=== PATIENT | female | born 1995 | race Caucasian/White ===

== ENCOUNTER 2017-01-08 18:11 | Inpatient (IN) | payer BC ==
[~2017-01-08 18:11] MED LIST: Ampicillin 1 GM in Sodium Chloride 0.9% 50 ML IV SCH
[2017-01-08] MEDS ORDERED: Misoprostol 200 MCG Tab PO PRN (18:30)
[2017-01-08] MEDS ORDERED: Sodium Chloride 0.9% 2.5 ML Syringe FLUSH PRN (18:30)
[2017-01-08] MEDS ORDERED: Sodium Chloride 0.9% 10 ML Syringe FLUSH PRN (18:30)
[2017-01-08] MEDS ORDERED: Lidocaine 1% 50 ML MDV INJECT PRN (18:30)
[2017-01-08] MEDS ORDERED: Oxytocin/0.9 % Sodium Chloride 30 UNIT/500 ML BAG IV SCH (18:30)
[2017-01-08] MEDS ORDERED: Methylergonovine 0.2 MG/1 ML Amp IM PRN (18:30)
[2017-01-08] MEDS ORDERED: Carboprost Tromethamine 250 MCG/1 ML Amp IM PRN (18:30)
[2017-01-08] MEDS ORDERED: Water For Irrigation,Sterile 1,000 ML Container IRR PRN (18:30)
[2017-01-08] MEDS ORDERED: Nalbuphine 10 MG/1 ML Vial IVPUSH PRN (18:30)
[2017-01-08] MEDS ORDERED: Ampicillin 2 GM in Sodium Chloride 0.9% 100 ML IV ONE (18:30)
[2017-01-08] MEDS ORDERED: Butorphanol 1 MG/ML SDV IVPUSH PRN (18:30)
--- NOTE | 2017-01-08 19:02 | PCM.LDHP ---
L&D History of Present Illness - General Date of Service: 01/08/17 Admit Problem/Dx: Patient Status Order with Admit Dx/Problem 01/08/17 18:30 Patient Status [ADT] Routine Admission Diagnosis/Problem Admission Diagnosis/Problem 01/08/17 18:57 21 yo unsure of EDC very late care. Per u/s 39weeks. A neg, RI, GBS unkwn, Chlamydia positive. SROM mec stained fluid active labor Source of Information: Patient History Limitations: Reports: No Limitations - History of Present Illness Improves with: Reports: None Worsens with: Reports: None Associated Symptoms: Reports: N - Related Data Allergies/Adverse Reactions: Allergies Allergy/AdvReac Type Severity Reaction Status Date / Time No Known Allergies Allergy Verified 01/08/17 18:29 H&P Review of Systems - Review of Systems: Review Of Systems: See Below General: Reports: No Symptoms HEENT: Reports: No Symptoms Pulmonary: Reports: No Symptoms Cardiovascular: Reports: No Symptoms Gastrointestinal: Reports: No Symptoms Genitourinary: Reports: No Symptoms Musculoskeletal: Reports: No Symptoms Skin: Reports: No Symptoms Psychiatric: Reports: No Symptoms Neurological: Reports: No Symptoms Hematologic/Lymphatic: Reports: No Symptoms Immunologic: Reports: No Symptoms L&D Exam - Exam Exam: See Below - Vital Signs Weight: 97.069 kg - OB Specific Contraction Intensity: Moderate to Strong Movement: Active Heart Tones: Present Heart Tones per Min: 130 Heart Rate (FHR) Variability: Moderate (6-25 bmp) Presentation: Vertex - Rosas Score Rosas Score Cervix Position: Midposition Rosas Score Consistency: Soft Rosas Score Effacement: >80% Rosas Score Dilation: > 5 cm Rosas Score 's Station: -1 ,0 Rosas Score Total: 11 - Exam General: Alert, Cooperative HEENT: Hearing Intact Lungs: Clear to Auscultation, Normal Respiratory Effort Cardiovascular: Regular Rate, Regular Rhythm, Normal S1, Normal S2 GI/Abdominal Exam: Soft, Non-Tender, No Organomegaly (gravid) Rectal Exam: Deferred Genitourinary: Cervical dilitation, Cervical fluid (mec stained fluid) Back Exam: Full Range of Motion Extremities: Normal Range of Motion, Non-Tender, No Pedal Edema, Normal Capillary Refill Skin: Warm, Dry, Intact Neurological: Reflexes Equal Bilateral Psychiatric: Alert, Normal Affect, Normal Mood - Patient Data Lab Results Last 24 hrs: Laboratory Results - last 24 hr 01/08/17 Range/Units 18:40 WBC 15.44 H (4.0-11.0) K/uL RBC 4.41 (4.30-5.90) M/uL Hgb 11.0 L (12.0-16.0) g/dL Hct 33.9 L (36.0-46.0) % MCV 76.9 L (80.0-98.0) fL MCH 24.9 L (27.0-32.0) pg MCHC 32.4 (31.0-37.0) g/dL RDW Std Deviation 42.6 (28.0-62.0) fl RDW Coeff of Rosie 16 H (11.0-15.0) % Plt Count 207 (150-400) K/uL MPV 10.40 (7.40-12.00) fL Nucleated RBC % 0.0 /100WBC Nucleated RBCs # 0 K/uL Result Diagrams: 01/08/17 18:40 - Problem List (1) Supervision of normal IUP (intrauterine ) in primigravida SNOMED Code(s): 73002442, 362979995, 643795128 ICD Code: Z34.00 - ENCNTR FOR SUPRVSN OF NORMAL FIRST , UNSP TRIMESTER Status: Acute Priority: High Current Visit: Yes Qualifiers: Trimester: third trimester Qualified Code(s): Z34.03 - Encounter for supervision of normal first , third trimester (2) Poor patient attendance of care SNOMED Code(s): 013790042 ICD Code: O09.30 - SUPRVSN OF PREG W INSUFFICIENT ANTENAT CARE, UNSP TRIMESTER Status: Acute Priority: High Current Visit: Yes (3) Chlamydia infection affecting in third trimester SNOMED Code(s): 3387360430933 ICD Code: O98.313 - OTH INFECT W SEXL MODE OF TRANSMISS COMP PREG, THIRD TRI ; A74.9 - CHLAMYDIAL INFECTION, UNSPECIFIED Status: Acute Priority: High Current Visit: Yes (4) Meconium in amniotic fluid affecting management of mother in third trimester SNOMED Code(s): 89960265 ICD Code: O36.8930 - MATERNAL CARE FOR OTH PROBLEMS, THIRD TRIMESTER, UNSP Status: Acute Priority: High Current Visit: Yes Qualifiers: Fetus number: single or unspecified fetus Qualified Code(s): O36.8930 - Maternal care for other specified problems, third trimester, not applicable or unspecified Problem List Initiated/Reviewed/Updated: Yes Orders Last 24hrs: Active Orders 24 hr Category Date Time Status Patient Status [ADT] Routine ADT 01/08/17 18:30 Active Heart Tones [RC] CONTINUOUS Care 01/08/17 18:30 Active Non Stress Test [RC] PER UNIT ROUTINE Care 01/08/17 18:30 Active May Shower [RC] ASDIRECTED Care 01/08/17 18:30 Active Notify Provider [RC] PRN Care 01/08/17 18:30 Active Up ad Melany [RC] ASDIRECTED Care 01/08/17 18:30 Active Vaginal Exam [RC] PRN Care 01/08/17 18:30 Active Vital Signs [RC] PER UNIT ROUTINE Care 01/08/17 18:30 Active TYPE AND SCREEN [BBK] Routine Lab 01/08/17 18:40 Received Ampicillin 1 gm Med 01/08/17 22:30 Pending Sodium Chloride 0.9% [Normal Saline] 50 ml IV Q4H Ampicillin 2 gm Med 01/08/17 18:30 Active Sodium Chloride 0.9% [Normal Saline] 100 ml IV ONETIME Butorphanol [Stadol] Med 01/08/17 18:30 Active 1 mg IVPUSH Q1H PRN Carboprost Tromethamine [Hemabate DS] Med 01/08/17 18:30 Active 250 mcg IM ASDIRECTED PRN Lactated Ringers [Ringers, Lactated] 1,000 ml Med 01/08/17 18:30 Active IV ASDIRECTED Lidocaine 1% [Xylocaine 1%] Med 01/08/17 18:30 Active 50 ml INJECT .ONCE PRN Methylergonovine [Methergine] Med 01/08/17 18:30 Active 0.2 mg IM ASDIRECTED PRN Misoprostol [Cytotec] Med 01/08/17 18:30 Active 200 mcg PO .ONCE PRN Nalbuphine [Nubain] Med 01/08/17 18:30 Active 10 mg IVPUSH Q1H PRN Oxytocin/0.9 % Sodium Chloride [Oxytocin 30 Unit/500 ML Med 01/08/17 18:30 Active -NS] 30 unit in 500 ml IV TITRATE Sodium Chloride 0.9% [Saline Flush] Med 01/08/17 18:30 Active 10 ml FLUSH ASDIRECTED PRN Sodium Chloride 0.9% [Saline Flush] Med 01/08/17 18:30 Active 2.5 ml FLUSH ASDIRECTED PRN Water For Irrigation,Sterile [Sterile Water for Med 01/08/17 18:30 Active Irrigation] 1,000 ml IRR ASDIRECTED PRN Scalp Electrode [WOMSER] Per Unit Routine Oth 01/08/17 18:30 Ordered Peripheral IV Insertion Adult [OM.PC] Routine Oth 01/08/17 18:30 Ordered Resuscitation Status Routine Resus Stat 01/08/17 18:30 Ordered Medication Orders Butorphanol Tartrate (Stadol) 1 mg IVPUSH Q1H PRN PRN Reason: Pain Carboprost Tromethamine (Hemabate Ds) 250 mcg IM ASDIRECTED PRN PRN Reason: Post Hemorrhage Ampicillin Sodium 2 gm/ Sodium (Chloride) 100 mls @ 200 mls/hr IV ONETIME ONE Stop: 01/08/17 18:59 Ampicillin Sodium 1 gm/ Sodium (Chloride) 50 mls @ 100 mls/hr IV Q4H [facility] Lactated Ringer's (Ringers, Lactated) 1,000 mls @ 150 mls/hr IV ASDIRECTED [facility] Oxytocin/Sodium Chloride (Oxytocin 30 Unit/500 Ml-Ns) 30 unit in 500 mls @ 999 mls/hr IV TITRATE [facility] Lidocaine HCl (Xylocaine 1%) 50 ml INJECT .ONCE PRN PRN Reason: Laceration repair Methylergonovine Maleate (Methergine) 0.2 mg IM ASDIRECTED PRN PRN Reason: Post Hemorrhage Misoprostol (Cytotec) 200 mcg PO .ONCE PRN PRN Reason: Post Hemorrhage Nalbuphine HCl (Nubain) 10 mg IVPUSH Q1H PRN PRN Reason: Pain (severe 7-10) Sodium Chloride (Saline Flush) 10 ml FLUSH ASDIRECTED PRN PRN Reason: Keep Vein Open Sodium Chloride (Saline Flush) 2.5 ml FLUSH ASDIRECTED PRN PRN Reason: Keep Vein Open Sterile Water (Sterile Water For Irrigation) 1,000 ml IRR ASDIRECTED PRN PRN Reason: delivery Assessment/Plan Comment:: Labor A: 21 yo unsure of EDC very late care. Per u/s 39weeks. A neg, RI , GBS unkwn, Chlamydia positive. SROM mec stained fluid active labor P: Admit to L&D, epidural prn, anticipate , Dr Nick updated on pt status
[2017-01-08] MEDS: Lactated Ringers 1,000 ML IV SCH ×2 (19:10→20:09)
[2017-01-08] MEDS ORDERED: fentaNYL 100 MCG/2 ML SDV ONE (19:14)
[2017-01-08] MEDS ORDERED: Ropivacaine HCl/PF 100 ML ONE (19:15)
--- NOTE | 2017-01-08 20:07 | PCM.PREANE ---
Preanesthetic Assessment - Anesthesia/Transfusion/Family Hx Anesthesia History: No Prior Anesthesia Family History of Anesthesia Reaction: No Transfusion History: No Prior Transfusion(s) - Review of Systems General: No Symptoms Pulmonary: No Symptoms Cardiovascular: No Symptoms Gastrointestinal: No Symptoms Neurological: No Symptoms Other: Reports: None - Physical Assessment NPO Status Date: 01/08/17 NPO Status Time: 20:05 Height: 5 ft 5 in Weight: 214 lb ASA Class: 2 Mental Status: Alert & Oriented x3 Airway Class: Mallampati = 2 Dentition: Reports: Normal Dentition ROM/Head Extension: Full Lungs: Clear to Auscultation, Normal Respiratory Effort Cardiovascular: Regular Rate, Regular Rhythm - Lab Values: Laboratory Last Values WBC 15.44 K/uL (4.0-11.0) H 01/08/17 18:40 RBC 4.41 M/uL (4.30-5.90) 01/08/17 18:40 Hgb 11.0 g/dL (12.0-16.0) L 01/08/17 18:40 Hct 33.9 % (36.0-46.0) L 01/08/17 18:40 MCV 76.9 fL (80.0-98.0) L 01/08/17 18:40 MCH 24.9 pg (27.0-32.0) L 01/08/17 18:40 MCHC 32.4 g/dL (31.0-37.0) 01/08/17 18:40 RDW Std Deviation 42.6 fl (28.0-62.0) 01/08/17 18:40 RDW Coeff of Rosie 16 % (11.0-15.0) H 01/08/17 18:40 Plt Count 207 K/uL (150-400) 01/08/17 18:40 MPV 10.40 fL (7.40-12.00) 01/08/17 18:40 Nucleated RBC % 0.0 /100WBC 01/08/17 18:40 Nucleated RBCs # 0 K/uL 01/08/17 18:40 Blood Type A NEGATIVE 01/08/17 18:40 Antibody Screen NEGATIVE 01/08/17 18:40 - Allergies Allergies/Adverse Reactions: Allergies Allergy/AdvReac Type Severity Reaction Status Date / Time No Known Allergies Allergy Verified 01/08/17 18:29 - Blood Blood Available: No Product(s) Available: None - Anesthesia Plan Free Text/Narrative:: Labor Epidural Pre-Op Medication Ordered: None - Acknowledgements Anesthesia Type Planned: Epidural Pt an Appropriate Candidate for the Planned Anesthesia: Yes Alternatives and Risks of Anesthesia Discussed w Pt/Guardian: Yes Pt/Guardian Understands and Agrees with Anesthesia Plan: Yes PreAnesthesia Questionnaire Genitourinary History: Reports: STD (untreated chlamydia) - CURRENT (IN HOUSE) MEDS Current Meds: Current Medications Butorphanol Tartrate (Stadol) 1 mg IVPUSH Q1H PRN PRN Reason: Pain Carboprost Tromethamine (Hemabate Ds) 250 mcg IM ASDIRECTED PRN PRN Reason: Post Hemorrhage Ampicillin Sodium 1 gm/ Sodium (Chloride) 50 mls @ 100 mls/hr IV Q4H [facility] Lactated Ringer's (Ringers, Lactated) 1,000 mls @ 150 mls/hr IV ASDIRECTED [facility] Last Admin: 01/08/17 19:10 Dose: 150 mls/hr Oxytocin/Sodium Chloride (Oxytocin 30 Unit/500 Ml-Ns) 30 unit in 500 mls @ 999 mls/hr IV TITRATE [facility] Lidocaine HCl (Xylocaine 1%) 50 ml INJECT .ONCE PRN PRN Reason: Laceration repair Methylergonovine Maleate (Methergine) 0.2 mg IM ASDIRECTED PRN PRN Reason: Post Hemorrhage Misoprostol (Cytotec) 200 mcg PO .ONCE PRN PRN Reason: Post Hemorrhage Nalbuphine HCl (Nubain) 10 mg IVPUSH Q1H PRN PRN Reason: Pain (severe 7-10) Sodium Chloride (Saline Flush) 10 ml FLUSH ASDIRECTED PRN PRN Reason: Keep Vein Open Sodium Chloride (Saline Flush) 2.5 ml FLUSH ASDIRECTED PRN PRN Reason: Keep Vein Open Sterile Water (Sterile Water For Irrigation) 1,000 ml IRR ASDIRECTED PRN PRN Reason: delivery Discontinued Medications Fentanyl (Sublimaze) Confirm Administered Dose 100 mcg .ROUTE .STK-MED ONE Stop: 01/08/17 19:15 Ampicillin Sodium 2 gm/ Sodium (Chloride) 100 mls @ 200 mls/hr IV ONETIME ONE Stop: 01/08/17 18:59 Ropivacaine (Naropin 0.2%) Confirm Administered Dose 100 mls @ as directed .ROUTE .[facility] ONE Stop: 01/08/17 19:16
[2017-01-09] MEDS ORDERED: Ampicillin 1 GM in Sodium Chloride 0.9% 50 ML IV SCH (00:30)
--- NOTE | 2017-01-09 01:11 | PCM.DEL ---
L & D Note - General Info Date of Service: 01/09/17 Mother's Due Date: 01/09/17 - Delivery Note Labor: Spontaneous Delivery Outcome: Livebirth Infant Delivery Method: Spontaneous Vaginal Delivery-Single Delivery Mode: Spontaneous Presentation: Vertex Nuchal Cord: None Anesthesia Type: Epidural Amniotic Fluid Description: Meconium Stained Episiotomy Type: None Laceration: Labial, Sulcus Suture type: Chromic Suture size: 3-0 Placenta: Intact, Spontaneous Estimated Blood Loss: 200 Resuscitation Needed: No Score 1 min: 9 Score 5 min: 9 Second Stage Interventions: Reports: Pushing Effectively, Pushing, Pulls Own Legs Back Delivery Comments (Free Text/Narrative):: of viable male over intact perineum, head delivered then shoulders and body followed easily. Infant to mothers abdomen with RN at for evaluation. Delayed cord clamping. Pitocin to IFV. Cord clamped x2 and cut by Grandmother. Cord blood collected. Placenta delivered grossly intact. Inspection noted 2nd degree sulcus tear and right labial both repaired in usual manor with 3-0 bessie. EBL 200cc, APGARS 9/9, Wt: 8lb 6oz. Mother and baby left in stable condition for recovery bonding well. - General Info Date of Service: 01/09/17 Admission Dx/Problem (Free Text): Patient Status Order with Admit Dx/Problem 01/08/17 18:30 Patient Status [ADT] Routine Admission Diagnosis/Problem Admission Diagnosis/Problem 01/08/17 18:57 21 yo unsure of EDC very late care. Per u/s 39weeks. A neg, RI, GBS unkwn, Chlamydia positive. SROM mec stained fluid active labor Functional Status: Reports: Pain Controlled - Review of Systems General: Reports: No Symptoms HEENT: Reports: No Symptoms Pulmonary: Reports: No Symptoms Cardiovascular: Reports: No Symptoms Gastrointestinal: Reports: No Symptoms Genitourinary: Reports: No Symptoms Musculoskeletal: Reports: No Symptoms Skin: Reports: No Symptoms Neurological: Reports: No Symptoms Psychiatric: Reports: No Symptoms - Patient Data Weight - Most Recent: 97.069 kg Lab Results Last 24 Hours: Laboratory Results - last 24 hr 01/08/17 01/08/17 Range/Units 18:40 18:40 WBC 15.44 H (4.0-11.0) K/uL RBC 4.41 (4.30-5.90) M/uL Hgb 11.0 L (12.0-16.0) g/dL Hct 33.9 L (36.0-46.0) % MCV 76.9 L (80.0-98.0) fL MCH 24.9 L (27.0-32.0) pg MCHC 32.4 (31.0-37.0) g/dL RDW Std Deviation 42.6 (28.0-62.0) fl RDW Coeff of Rosie 16 H (11.0-15.0) % Plt Count 207 (150-400) K/uL MPV 10.40 (7.40-12.00) fL Nucleated RBC % 0.0 /100WBC Nucleated RBCs # 0 K/uL Blood Type A NEGATIVE Antibody Screen NEGATIVE Med Orders - Current: Current Medications Butorphanol Tartrate (Stadol) 1 mg IVPUSH Q1H PRN PRN Reason: Pain Carboprost Tromethamine (Hemabate Ds) 250 mcg IM ASDIRECTED PRN PRN Reason: Post Hemorrhage Lactated Ringer's (Ringers, Lactated) 1,000 mls @ 150 mls/hr IV ASDIRECTED [facility] Last Admin: 01/08/17 20:09 Dose: 150 mls/hr Oxytocin/Sodium Chloride (Oxytocin 30 Unit/500 Ml-Ns) 30 unit in 500 mls @ 999 mls/hr IV TITRATE [facility] Last Admin: 01/08/17 23:27 Dose: 2 mls/hr Ampicillin Sodium 1 gm/ Sodium (Chloride) 50 mls @ 100 mls/hr IV Q4H [facility] Last Admin: 01/09/17 00:53 Dose: 100 mls/hr Lidocaine HCl (Xylocaine 1%) 50 ml INJECT .ONCE PRN PRN Reason: Laceration repair Methylergonovine Maleate (Methergine) 0.2 mg IM ASDIRECTED PRN PRN Reason: Post Hemorrhage Misoprostol (Cytotec) 200 mcg PO .ONCE PRN PRN Reason: Post Hemorrhage Nalbuphine HCl (Nubain) 10 mg IVPUSH Q1H PRN PRN Reason: Pain (severe 7-10) Sodium Chloride (Saline Flush) 10 ml FLUSH ASDIRECTED PRN PRN Reason: Keep Vein Open Sodium Chloride (Saline Flush) 2.5 ml FLUSH ASDIRECTED PRN PRN Reason: Keep Vein Open Sterile Water (Sterile Water For Irrigation) 1,000 ml IRR ASDIRECTED PRN PRN Reason: delivery Discontinued Medications Fentanyl (Sublimaze) Confirm Administered Dose 100 mcg .ROUTE .STK-MED ONE Stop: 01/08/17 19:15 Ampicillin Sodium 2 gm/ Sodium (Chloride) 100 mls @ 200 mls/hr IV ONETIME ONE Stop: 01/08/17 18:59 Last Admin: 01/08/17 20:42 Dose: 200 mls/hr Ropivacaine (Naropin 0.2%) Confirm Administered Dose 100 mls @ as directed .ROUTE .STK-MED ONE Stop: 01/08/17 19:16 - Exam General: Alert, Oriented Lungs: Normal Respiratory Effort GI/Abdominal Exam: Soft, Non-Tender (Female) Exam: Normal External Exam, Normal Bimanual Exam, Vaginal Bleeding, Vaginal Tears Back Exam: Full Range of Motion Extremities: Normal Range of Motion, Non-Tender, No Pedal Edema, Normal Capillary Refill Skin: Warm, Dry, Intact Wound/Incisions: Healing Well Neurological: No New Focal Deficit, Normal Speech, Normal Tone Psy/Mental Status: Alert, Normal Affect, Normal Mood - Problem List & Annotations (1) Supervision of normal IUP (intrauterine ) in primigravida SNOMED Code(s): 85923481, 552930365, 651835232 Code(s): Z34.00 - ENCNTR FOR SUPRVSN OF NORMAL FIRST , UNSP TRIMESTER Status: Acute Priority: High Current Visit: Yes Qualifiers: Trimester: third trimester Qualified Code(s): Z34.03 - Encounter for supervision of normal first , third trimester (2) Poor patient attendance of care SNOMED Code(s): 323805880 Code(s): O09.30 - SUPRVSN OF PREG W INSUFFICIENT ANTENAT CARE, UNSP TRIMESTER Status: Acute Priority: High Current Visit: Yes (3) Chlamydia infection affecting in third trimester SNOMED Code(s): 2543023675705 Code(s): O98.313 - OTH INFECT W SEXL MODE OF TRANSMISS COMP PREG, THIRD TRI; A74.9 - CHLAMYDIAL INFECTION, UNSPECIFIED Status: Acute Priority: High Current Visit: Yes (4) Meconium in amniotic fluid affecting management of mother in third trimester SNOMED Code(s): 95786462 Code(s): O36.8930 - MATERNAL CARE FOR OTH PROBLEMS, THIRD TRIMESTER, UNSP Status: Acute Priority: High Current Visit: Yes Qualifiers: Fetus number: single or unspecified fetus Qualified Code(s): O36.8930 - Maternal care for other specified problems, third trimester, not applicable or unspecified (5) (normal spontaneous vaginal delivery) SNOMED Code(s): 41486838 Code(s): O80 - ENCOUNTER FOR FULL-TERM UNCOMPLICATED DELIVERY Status: Acute Priority: High Current Visit: Yes - Problem List Review Problem List Initiated/Reviewed/Updated: Yes - Assessment Assessment:: Delivery viable male APGARS 9/9, Wt: 8lb 6oz. 2nd degree sulcus and right labial lac with repair. EBL 200cc, stable - Plan Plan:: Labor A: 21 yo unsure of EDC very late care. Per u/s 39weeks. A neg, RI , GBS unkwn, Chlamydia positive. SROM mec stained fluid active labor P: Admit to L&D, epidural prn, anticipate , Dr Nick updated on pt status Delivery P: routine pp plan of care
[2017-01-09] MEDS ORDERED: Docusate Sodium 100 MG Cap PO PRN (01:17)
[2017-01-09] MEDS ORDERED: Witch Hazel Medicated Pads 40/Jar TOP PRN (01:17)
[2017-01-09] MEDS ORDERED: Lanolin 100% Cream 7 GM Tube TOP PRN (01:17)
[2017-01-09] MEDS ORDERED: Ibuprofen 800 MG Tab PO PRN (01:17)
[2017-01-09] MEDS ORDERED: Acetaminophen 500 MG Tab PO PRN ×2 (01:17)
[2017-01-09] MEDS ORDERED: Benzocaine/Menthol 20%-0.5% Spray 78 GM Cannister TOP PRN (01:17)
[2017-01-09] MEDS ORDERED: Bisacodyl 10 MG Supp RECTAL PRN (01:17)
[2017-01-09] MEDS ORDERED: oxyCODONE 5 MG Tab PO PRN (01:17)
[2017-01-09] MEDS ORDERED: Ibuprofen 400 MG Tab PO PRN (01:17)
--- NOTE | 2017-01-09 09:58 | PCM48HPAN ---
Post Anesthesia Note - EVALUATION WITHIN 48HRS OF ANESTHETIC Vital Signs in Normal Range: Yes Patient Participated in Evaluation: Yes Respiratory Function Stable: Yes Airway Patent: Yes Cardiovascular Function Stable: Yes Hydration Status Stable: Yes Pain Control Satisfactory: Yes Nausea and Vomiting Control Satisfactory: Yes Mental Status Recovered: Yes
--- NOTE | 2017-01-10 08:30 | PCM.DCSUM1 ---
Discharge Summary - Hospital Course Free Text/Narrative:: Discharge home with . Follow up 6 weeks for post visit or sooner if needed. - Discharge Data Discharge Date: 01/10/17 Discharge Disposition: Home, Self-Care 01 Condition: Good - Discharge Diagnosis/Problem(s) (1) Supervision of normal IUP (intrauterine ) in primigravida SNOMED Code(s): 10404675, 225568490, 843053192 ICD Code: Z34.00 - ENCNTR FOR SUPRVSN OF NORMAL FIRST , UNSP TRIMESTER Status: Acute Priority: High Current Visit: Yes Qualifiers: Trimester: third trimester Qualified Code(s): Z34.03 - Encounter for supervision of normal first , third trimester (2) Poor patient attendance of care SNOMED Code(s): 896495908 ICD Code: O09.30 - SUPRVSN OF PREG W INSUFFICIENT ANTENAT CARE, UNSP TRIMESTER Status: Acute Priority: High Current Visit: Yes (3) Chlamydia infection affecting in third trimester SNOMED Code(s): 0293988335071 ICD Code: O98.313 - OTH INFECT W SEXL MODE OF TRANSMISS COMP PREG, THIRD TRI ; A74.9 - CHLAMYDIAL INFECTION, UNSPECIFIED Status: Acute Priority: High Current Visit: Yes (4) Meconium in amniotic fluid affecting management of mother in third trimester SNOMED Code(s): 08924939 ICD Code: O36.8930 - MATERNAL CARE FOR OTH PROBLEMS, THIRD TRIMESTER, UNSP Status: Acute Priority: High Current Visit: Yes Qualifiers: Fetus number: single or unspecified fetus Qualified Code(s): O36.8930 - Maternal care for other specified problems, third trimester, not applicable or unspecified (5) (normal spontaneous vaginal delivery) SNOMED Code(s): 65904346 ICD Code: O80 - ENCOUNTER FOR FULL-TERM UNCOMPLICATED DELIVERY Status: Acute Priority: High Current Visit: Yes - Patient Instructions Diet: Usual Diet as Tolerated Activity: As Tolerated, Rest and Relax Today Driving: May Drive Today Showering/Bathing: May Shower Notify Provider of: Fever, Increased Pain, Swelling and Redness, Nausea and/or Vomiting Other/Special Instructions: Discharge home with infant. Follow up 6 weeks for post visit or sooner if needed. - Discharge Plan Patient Handouts: Vaginal Delivery, Care After - General Info Date of Service: 01/10/17 Admission Dx/Problem (Free Text: Patient Status Order with Admit Dx/Problem 01/08/17 18:30 Patient Status [ADT] Routine Admission Diagnosis/Problem Admission Diagnosis/Problem 01/08/17 18:57 21 yo unsure of EDC very late care. Per u/s 39weeks. A neg, RI, GBS unkwn, Chlamydia positive. SROM mec stained fluid active labor Functional Status: Reports: Pain Controlled, Tolerating Diet, Ambulating, Urinating - Review of Systems General: Reports: No Symptoms HEENT: Reports: No Symptoms Pulmonary: Reports: No Symptoms Cardiovascular: Reports: No Symptoms Gastrointestinal: Reports: No Symptoms Genitourinary: Reports: No Symptoms Musculoskeletal: Reports: No Symptoms Skin: Reports: No Symptoms Neurological: Reports: No Symptoms Psychiatric: Reports: No Symptoms - Patient Data Vitals - Most Recent: Last Vital Signs Temp 36.8 C 01/10/17 05:00 Pulse 72 01/10/17 05:00 Resp 16 01/10/17 05:00 BP 117/56 L 01/10/17 05:00 Pulse Ox 97 01/10/17 05:00 Weight - Most Recent: 97.069 kg Med Orders - Current: Current Medications Acetaminophen (Tylenol Extra Strength) 500 mg PO Q4H PRN PRN Reason: Pain Acetaminophen (Tylenol Extra Strength) 1,000 mg PO Q4H PRN PRN Reason: Pain Benzocaine/Menthol (Dermoplast Pain Relief 20%-0.5% [place]) 78 gm TOP ASDIRECTED PRN PRN Reason: Perineal Comfort Measure Last Admin: 01/09/17 03:16 Dose: 1 applic Bisacodyl (Dulcolax) 10 mg RECTAL .ONCE PRN PRN Reason: Constipation Docusate Sodium (Colace) 100 mg PO BID PRN PRN Reason: Constipation Last Admin: 01/09/17 08:49 Dose: 100 mg Emollient Ointment (Lansinoh Hpa) 0 gm TOP ASDIRECTED PRN PRN Reason: Sore Nipples Last Admin: 01/09/17 03:17 Dose: 1 applic Ibuprofen (Motrin) 400 mg PO Q4H PRN PRN Reason: Pain Ibuprofen (Motrin) 800 mg PO Q6H PRN PRN Reason: Pain Last Admin: 01/09/17 08:49 Dose: 800 mg Oxycodone HCl (Oxycodone) 5 mg PO Q2H PRN PRN Reason: Pain Witch Rosanne (Tucks) 1 pad TOP ASDIRECTED PRN PRN Reason: comfort care Discontinued Medications Butorphanol Tartrate (Stadol) 1 mg IVPUSH Q1H PRN PRN Reason: Pain Carboprost Tromethamine (Hemabate Ds) 250 mcg IM ASDIRECTED PRN PRN Reason: Post Hemorrhage Fentanyl (Sublimaze) Confirm Administered Dose 100 mcg .ROUTE .K-MED ONE Stop: 01/08/17 19:15 Ampicillin Sodium 2 gm/ Sodium (Chloride) 100 mls @ 200 mls/hr IV ONETIME ONE Stop: 01/08/17 18:59 Last Admin: 01/08/17 20:42 Dose: 200 mls/hr Lactated Ringer's (Ringers, Lactated) 1,000 mls @ 150 mls/hr IV ASDIRECTED [facility] Last Admin: 01/08/17 20:09 Dose: 150 mls/hr Oxytocin/Sodium Chloride (Oxytocin 30 Unit/500 Ml-Ns) 30 unit in 500 mls @ 999 mls/hr IV TITRATE [facility] Last Admin: 01/08/17 23:27 Dose: 2 mls/hr Ropivacaine (Naropin 0.2%) Confirm Administered Dose 100 mls @ as directed .ROUTE .STK-MED ONE Stop: 01/08/17 19:16 Ampicillin Sodium 1 gm/ Sodium (Chloride) 50 mls @ 100 mls/hr IV Q4H [facility] Last Admin: 01/09/17 00:53 Dose: 100 mls/hr Lidocaine HCl (Xylocaine 1%) 50 ml INJECT .ONCE PRN PRN Reason: Laceration repair Methylergonovine Maleate (Methergine) 0.2 mg IM ASDIRECTED PRN PRN Reason: Post Hemorrhage Misoprostol (Cytotec) 200 mcg PO .ONCE PRN PRN Reason: Post Hemorrhage Nalbuphine HCl (Nubain) 10 mg IVPUSH Q1H PRN PRN Reason: Pain (severe 7-10) Sodium Chloride (Saline Flush) 10 ml FLUSH ASDIRECTED PRN PRN Reason: Keep Vein Open Sodium Chloride (Saline Flush) 2.5 ml FLUSH ASDIRECTED PRN PRN Reason: Keep Vein Open Sterile Water (Sterile Water For Irrigation) 1,000 ml IRR ASDIRECTED PRN PRN Reason: delivery - Exam General: Reports: Alert, Oriented, Cooperative, No Acute Distress Lungs: Reports: Normal Respiratory Effort GI/Abdominal Exam: Soft, Non-Tender, No Organomegaly (Female) Exam: Vaginal Bleeding Rectal (Female) Exam: Deferred Back Exam: Reports: Full Range of Motion Extremities: Normal Range of Motion, Non-Tender, No Pedal Edema, Normal Capillary Refill Skin: Reports: Warm, Dry, Intact Wound/Incisions: Reports: Healing Well Neurological: Reports: No New Focal Deficit, Normal Speech, Normal Tone Psy/Mental Status: Reports: Alert, Normal Affect, Normal Mood *Q Meaningful Use (DIS) - VTE *Q VTE Criteria *Q: - Stroke *Q Stroke Criteria *Q: - AMI *Q AMI Criteria *Q:
== END 2017-01-10 12:40 | disposition home or self-care (01) | DRG 560 ==
LOC: MW.OBCHECK 18:11 → MW.OB 18:12 → MW.OBCHECK 18:30 → MW.OB 18:30 → OBSVTOIN 01-09 00:38 → MW.OB 01-09 04:00
PROVIDERS: ADMIT Obstetrics & Gynecology; ATTEND Obstetrics & Gynecology
PROC: 10E0XZZ Delivery of Products of Conception, External Approach (ICD-10-PCS; principal; 2017-01-09)
DX: O98.82 Other maternal infectious and parasitic diseases complicating childbirth (principal); O36.8930 Maternal care for other specified fetal problems, third trimester, not applicable or unspecified; O09.33 Supervision of pregnancy with insufficient antenatal care, third trimester; O70.1 Second degree perineal laceration during delivery; Z3A.39 39 weeks gestation of pregnancy; Z37.0 Single live birth
CPT/HCPCS: 36415; 51702; 59025; 59409; 85027; 86850; 86900; 86901; A9270-GY; J0290; J2590; J2795; J3010; J7030; J7050; J7120

== ENCOUNTER 2018-07-31 07:27 | Observation (INO) | payer BC ==
[2018-07-31] MEDS ORDERED: Sodium Chloride 0.9% 2.5 ML Syringe FLUSH PRN (07:29)
[2018-07-31] MEDS ORDERED: Sodium Chloride 0.9% 10 ML Syringe FLUSH PRN (07:29)
--- NOTE | 2018-07-31 07:31 | EDM.PDOC ---
ED HPI GENERAL MEDICAL PROBLEM - General Stated Complaint: MISCARRIAGE Time Seen by Provider: 07/31/18 07:28 Source of Information: Reports: Patient History Limitations: Reports: No Limitations - History of Present Illness INITIAL COMMENTS - FREE TEXT/NARRATIVE: History of present illness: []She is a 2 para 1 that was unaware she was and thought that she was starting her period. She palpated her abdomen and felt a mass. She got into a tub and passed a fetus that was gasping. Patient states she delivered the placenta and cut the cord. She then got online and determined that by the size of the fetus she was approximately 24 weeks. Patient states her last menstrual period was March 10. Review of systems: As per history of present illness and below otherwise all systems reviewed and negative. Past medical history: As per history of present illness and as reviewed below otherwise noncontributory. Surgical history: As per history of present illness and as reviewed below otherwise noncontributory. Social history: No reported history of drug or alcohol abuse. Family history: As per history of present illness and as reviewed below otherwise noncontributory. Physical exam: General: Well developed, well nourished in NAD HEENT: Atraumatic, normocephalic, pupils reactive, negative for conjunctival pallor or scleral icterus, mucous membranes moist, throat clear, neck supple, nontender, trachea midline. Lungs: Clear to auscultation, breath sounds equal bilaterally, chest nontender. Heart: S1S2, regular, negative for clicks, rubs, or JVD. Abdomen: NABS, Soft, nondistended, nontender. Negative for masses or hepatosplenomegaly. Negative for costovertebral tenderness. Pelvis: Stable nontender. Genitourinary: Deferred. Rectal: Deferred. Extremities: Atraumatic, negative for cords or calf pain. Neurovascular unremarkable. Neuro: Awake, alert, oriented. Cranial nerves II through XII unremarkable. Cerebellum unremarkable. Motor and sensory unremarkable throughout. Exam nonfocal. Skin:warm and dry Diagnostics: Ultrasound-retained POC, CBC, Rh Therapeutics: IV fluids, RhoGAM ED Course: Stable, consulted Dr. Barrow who would like us to send patient to labor and delivery for care Impression: with spontaneous Prescriptions: None Plan: Follow-up with primary care doctor if symptoms worsen or change. Definitive disposition and diagnosis as appropriate pending reevaluation and review of above. - Related Data Allergies Allergy/AdvReac Type Severity Reaction Status Date / Time No Known Allergies Allergy Verified 07/31/18 07:56 Home Meds: Home Meds . [No Known Home Meds] 07/31/18 [History] Past Medical History - Past Health History Medical/Surgical History: Denies Medical/Surgical History Genitourinary History: Reports: STD (untreated chlamydia) Social & Family History - Family History Cardiac: Reports: Aneurysm Respiratory: Reports: COPD ED ROS GENERAL - Review of Systems Review Of Systems: ROS reveals no pertinent complaints other than HPI. ED EXAM - Physical Exam Exam: See Below Course - Vital Signs Last Recorded V/S: Last Vital Signs Temp 97.4 F 07/31/18 07:30 Pulse 114 H 07/31/18 07:30 Resp 18 07/31/18 07:30 BP 126/85 07/31/18 07:30 Pulse Ox 98 07/31/18 07:30 - Orders/Labs/Meds Orders: Active Orders 24 hr Category Date Time Status ABO/RH TYPE [BBK] Stat Lab 07/31/18 07:25 Results ANTIBODY SCREEN (HANANE) [BBK] Stat Lab 07/31/18 07:25 Results SCREEN [BBK] Stat Lab 07/31/18 07:25 Results RH IMMUNE GLOBULIN [BBK] Stat Lab 07/31/18 07:25 Results RHIG WORKUP, [BBK] Stat Lab 07/31/18 07:25 Results Sodium Chloride 0.9% [Saline Flush] Med 07/31/18 07:29 Active 10 ml FLUSH ASDIRECTED PRN Sodium Chloride 0.9% [Saline Flush] Med 07/31/18 07:29 Active 2.5 ml FLUSH ASDIRECTED PRN Saline Lock Insert [OM.PC] Stat Oth 07/31/18 07:30 Ordered Medication Orders Sodium Chloride (Saline Flush) 10 ml FLUSH ASDIRECTED PRN PRN Reason: Keep Vein Open Sodium Chloride (Saline Flush) 2.5 ml FLUSH ASDIRECTED PRN PRN Reason: Keep Vein Open Labs: Laboratory Tests 07/31/18 07/31/18 Range/Units 07:25 07:25 WBC 12.63 H (4.0-11.0) K/uL RBC 4.51 (4.30-5.90) M/uL Hgb 12.2 (12.0-16.0) g/dL Hct 36.9 (36.0-46.0) % MCV 81.8 (80.0-98.0) fL MCH 27.1 (27.0-32.0) pg MCHC 33.1 (31.0-37.0) g/dL RDW Std Deviation 42.9 (28.0-62.0) fl RDW Coeff of Rosie 14 (11.0-15.0) % Plt Count 235 (150-400) K/uL MPV 9.90 (7.40-12.00) fL Neut % (Auto) 78.1 (48.0-80.0) % Lymph % (Auto) 13.9 L (16.0-40.0) % [place] % (Auto) 7.0 (0.0-15.0) % Eos % (Auto) 0.9 (0.0-7.0) % Baso % (Auto) 0.1 (0.0-1.5) % Neut # (Auto) 9.9 H (1.4-5.7) K/uL Lymph # (Auto) 1.8 (0.6-2.4) K/uL [place] # (Auto) 0.9 H (0.0-0.8) K/uL Eos # (Auto) 0.1 (0.0-0.7) K/uL Baso # (Auto) 0.0 (0.0-0.1) K/uL Nucleated RBC % 0.0 /100WBC Nucleated RBCs # 0 K/uL Blood Type A NEGATIVE Antibody Screen NEGATIVE Screen NEGATIVE (NEGATIVE) RhIG Candidate? YES Rhogam Indicated YES, BABY RH UNKNOWN H Meds: Medications Generic Name Dose Route Start Last Admin Trade Name Freq PRN Reason Stop Dose Admin Sodium Chloride 10 ml 07/31/18 07:29 Saline Flush FLUSH ASDIRECTED PRN Keep Vein Open Sodium Chloride 2.5 ml 07/31/18 07:29 Saline Flush FLUSH ASDIRECTED PRN Keep Vein Open Discontinued Medications Generic Name Dose Route Start Last Admin Trade Name Freq PRN Reason Stop Dose Admin Sodium Chloride 1,000 mls @ 999 mls/hr 07/31/18 07:47 07/31/18 07:50 Normal Saline IV 07/31/18 08:47 999 mls/hr .Bolus ONE Administration Ondansetron HCl Confirm 07/31/18 07:50 07/31/18 08:29 Zofran Administered 07/31/18 07:51 Not Given Dose 4 mg .ROUTE .STK-MED ONE Departure - Departure Time of Disposition: 08:59 Disposition: Still A Patient 30 Condition: Good Clinical Impression: Spontaneous - Discharge Information *PRESCRIPTION DRUG MONITORING PROGRAM REVIEWED*: No *COPY OF PRESCRIPTION DRUG MONITORING REPORT IN PATIENT NIKKIE: No Referrals: PCP,None [Primary Care Provider] - - My Orders Last 24 Hours: My Active Orders 07/31/18 07:25 ABO/RH TYPE [BBK] Stat ANTIBODY SCREEN (HANANE) [BBK] Stat SCREEN [BBK] Stat RH IMMUNE GLOBULIN [BBK] Stat RHIG WORKUP, [BBK] Stat 07/31/18 07:29 Sodium Chloride 0.9% [Saline Flush] 10 ml FLUSH ASDIRECTED PRN Sodium Chloride 0.9% [Saline Flush] 2.5 ml FLUSH ASDIRECTED PRN 07/31/18 07:30 Saline Lock Insert [OM.PC] Stat - Assessment/Plan Last 24 Hours: My Active Orders 07/31/18 07:25 ABO/RH TYPE [BBK] Stat ANTIBODY SCREEN (HANANE) [BBK] Stat SCREEN [BBK] Stat RH IMMUNE GLOBULIN [BBK] Stat RHIG WORKUP, [BBK] Stat 07/31/18 07:29 Sodium Chloride 0.9% [Saline Flush] 10 ml FLUSH ASDIRECTED PRN Sodium Chloride 0.9% [Saline Flush] 2.5 ml FLUSH ASDIRECTED PRN 07/31/18 07:30 Saline Lock Insert [OM.PC] Stat
[2018-07-31] MEDS ORDERED: Sodium Chloride 0.9% 1,000 ML IV ONE (07:47)
[2018-07-31] MEDS ORDERED: Ondansetron 4 MG/2 ML SDV IVPUSH ONE (07:48)
[2018-07-31] MEDS ORDERED: Ondansetron 4 MG/2 ML SDV ONE (07:50)
--- NOTE | 2018-07-31 08:46 | US ---
INDICATION: Miscarriage. TECHNIQUE: Ultrasound OB pelvis transabdominal. Real-time witt-scale imaging of the pelvis was performed. COMPARISON: None FINDINGS: No sign of viable . The endometrium is thickened measuring 22 mm with internal color Doppler blood flow consistent with retained products of conception. No adnexal mass or fluid collection. IMPRESSION: Retained products of conception are present in the uterus. Remainder of the exam is unremarkable. Dictated by Jimmy Rosado MD @ Jul 31 2018 8:42AM Signed by Dr. Jimmy Rosado @ Jul 31 2018 8:45AM
[2018-07-31] MEDS ORDERED: Oxytocin/0.9 % Sodium Chloride 30 UNIT/500 ML BAG IV SCH (11:00)
--- NOTE | 2018-07-31 12:40 | PCM.HP ---
H&P History of Present Illness - General Date of Service: 07/31/18 Admit Problem/Dx: Admission Diagnosis/Problem Admission Diagnosis/Problem of nonviable fetus Source of Information: Patient History Limitations: Reports: No Limitations - History of Present Illness Initial Comments - Free Text/Narative: 23 yo with unknown LMP presented to ED after spontaneously delivering a fetus at home around 6:30 am. She was not aware she was . She began bleeding 2 days ago and then having cramping/pain last night. Denies fever or chills. She had increasing pain this morning and passed a fetus with placenta spontaneously. She then presented to ED for evaluation. - Related Data Allergies/Adverse Reactions: Allergies Allergy/AdvReac Type Severity Reaction Status Date / Time No Known Allergies Allergy Verified 07/31/18 07:56 Home Medications: Home Meds . [No Known Home Meds] 07/31/18 [History] Past Medical History - Past Health History Medical/Surgical History: Denies Medical/Surgical History HEENT History: Reports: None Cardiovascular History: Reports: None Respiratory History: Reports: None Gastrointestinal History: Reports: None Genitourinary History: Reports: STD (untreated chlamydia) [employer] History: Reports: None Musculoskeletal History: Reports: None Neurological History: Reports: None Psychiatric History: Reports: None Endocrine/Metabolic History: Reports: None Hematologic History: Reports: None Immunologic History: Reports: None Oncologic (Cancer) History: Reports: None Dermatologic History: Reports: None - Past Surgical History Head Surgeries/Procedures: Reports: None HEENT Surgical History: Reports: None Cardiovascular Surgical History: Reports: None Respiratory Surgical History: Reports: None GI Surgical History: Reports: None Female Surgical History: Reports: None Endocrine Surgical History: Reports: None Neurological Surgical History: Reports: None Musculoskeletal Surgical History: Reports: None Oncologic Surgical History: Reports: None Dermatological Surgical History: Reports: None Social & Family History - Family History HEENT: Reports: None Cardiac: Reports: Hypertension (Father) Respiratory: Reports: COPD Oncologic: Denies: Breast, Colon, Ovarian - Tobacco Use Smoking Status *Q: Never Smoker Second Hand Smoke Exposure: No - Caffeine Use Caffeine Use: Reports: Coffee - Alcohol Use Alcohol Use History: Yes Alcohol Use Comment: occasional social use - Recreational Drug Use Recreational Drug Use: No - Living Situation & Occupation Living situation: Reports: Single Occupation: Employed Social History Comment: works at [employer], she is a single mother with 19 month old H&P Review of Systems - Review of Systems: Review Of Systems: See Below General: Reports: Fatigue. Denies: Fever, Chills Pulmonary: Reports: No Symptoms Cardiovascular: Reports: No Symptoms Gastrointestinal: Reports: No Symptoms, Mucous in Stool Genitourinary: Reports: No Symptoms Musculoskeletal: Reports: No Symptoms Skin: Reports: No Symptoms Psychiatric: Reports: Other (tearful and a bit overwhelmed by situation, family is here and supportive) Hematologic/Lymphatic: Reports: No Symptoms Immunologic: Reports: No Symptoms Exam - Exam Exam: See Below - Vital Signs Vital Signs: Last Vital Signs Temp 36.3 C 07/31/18 07:30 Pulse 114 H 07/31/18 07:30 Resp 18 07/31/18 07:30 BP 126/85 07/31/18 07:30 Pulse Ox 98 07/31/18 07:30 - Exam General: Alert, Oriented Neck: Supple Lungs: Normal Respiratory Effort Cardiovascular: Regular Rate, Regular Rhythm GI/Abdominal Exam: Normal Bowel Sounds, Soft (Female) Exam: Vaginal Bleeding (few clots expressed with speculum exam), Other (Uterus is firm and measures 3 below umbilicus. No perineal or vaginal lacerations identified) Rectal (Female) Exam: Normal Exam Back Exam: No: CVA Tenderness (L), CVA Tenderness (R) Extremities: Pedal Edema (trace). No: Mo's Sign Skin: Warm, Dry, Intact Neuro Extensive - Mental Status: Alert, Oriented x3 Psychiatric: Alert, Other (tearful) - Patient Data Lab Results Last 24 hrs: Laboratory Results - last 24 hr 07/31/18 07/31/18 Range/Units 07:25 07:25 WBC 12.63 H (4.0-11.0) K/uL RBC 4.51 (4.30-5.90) M/uL Hgb 12.2 (12.0-16.0) g/dL Hct 36.9 (36.0-46.0) % MCV 81.8 (80.0-98.0) fL MCH 27.1 (27.0-32.0) pg MCHC 33.1 (31.0-37.0) g/dL RDW Std Deviation 42.9 (28.0-62.0) fl RDW Coeff of Rosie 14 (11.0-15.0) % Plt Count 235 (150-400) K/uL MPV 9.90 (7.40-12.00) fL Neut % (Auto) 78.1 (48.0-80.0) % Lymph % (Auto) 13.9 L (16.0-40.0) % [place] % (Auto) 7.0 (0.0-15.0) % Eos % (Auto) 0.9 (0.0-7.0) % Baso % (Auto) 0.1 (0.0-1.5) % Neut # (Auto) 9.9 H (1.4-5.7) K/uL Lymph # (Auto) 1.8 (0.6-2.4) K/uL [place] # (Auto) 0.9 H (0.0-0.8) K/uL Eos # (Auto) 0.1 (0.0-0.7) K/uL Baso # (Auto) 0.0 (0.0-0.1) K/uL Nucleated RBC % 0.0 /100WBC Nucleated RBCs # 0 K/uL Blood Type A NEGATIVE Antibody Screen NEGATIVE Screen NEGATIVE (NEGATIVE) RhIG Candidate? YES Rhogam Indicated YES, BABY RH UNKNOWN H Result Diagrams: 07/31/18 07:25 - Problem List (1) Spontaneous in second trimester SNOMED Code(s): 35835363 ICD Code: O03.9 - COMPLETE OR UNSP SPONTANEOUS WITHOUT COMPLICATION Status: Acute Current Visit: Yes Problem List Initiated/Reviewed/Updated: Yes Orders Last 24hrs: Active Orders 24 hr Category Date Time Status Patient Status [ADT] Stat ADT 07/31/18 09:04 Active Regular Diet [DIET] Diet 07/31/18 Dinner Ordered CBC W/O DIFF,HEMOGRAM [HEME] Routine Lab 07/31/18 12:32 Ordered DRUG SCREEN, URINE [URCHEM] Routine Lab 07/31/18 10:56 Ordered Oxytocin/0.9 % Sodium Chloride [Oxytocin 30 Unit/500 ML Med 07/31/18 11:00 Active -NS] 30 unit in 500 ml IV TITRATE Sodium Chloride 0.9% [Saline Flush] Med 07/31/18 07:29 Active 10 ml FLUSH ASDIRECTED PRN Sodium Chloride 0.9% [Saline Flush] Med 07/31/18 07:29 Active 2.5 ml FLUSH ASDIRECTED PRN Saline Lock Insert [OM.PC] Stat Oth 07/31/18 07:30 Ordered Medication Orders Oxytocin/Sodium Chloride (Oxytocin 30 Unit/500 Ml-Ns) 30 unit in 500 mls @ 500 mls/hr IV TITRATE [place] Sodium Chloride (Saline Flush) 10 ml FLUSH ASDIRECTED PRN PRN Reason: Keep Vein Open Sodium Chloride (Saline Flush) 2.5 ml FLUSH ASDIRECTED PRN PRN Reason: Keep Vein Open Probable 18-20 week SAB Hemodynamically stable Assessment/Plan Comment:: Thus far vaginal bleeding is light, speculum exam reveals os to be closing and no tissue present in vault or os. No perineal or vaginal lacerations identified. Patient is RH negative and to receive rhogam. Hemoglobin was 12.2 in ER. VS remain stable overall and patient is denying orthostatic symptoms. Ultrasound in ER questions possible retained products--but patient had just delivered, thus has a typical directly appearance. Given light lochia with observation, will opt to follow conservatively at this juncture. Repeat hemoglobin. Allow regular diet and ambulation to see how feels. If does well overall, will allow discharge to home later today in the care of her mother and aunt. Work excuse until next week provided. [facility] up at [facility] 2 week. Infection and bleeding warnings reviewed. Pelvic rest until follow up appointment advised. Will discuss contraception at follow up visit. Fetus to pathology.
== END 2018-07-31 18:38 | disposition home or self-care (01) ==
LOC: MW.ED 07:27 → MW.OB 09:06
PROVIDERS: ADMIT Obstetrics & Gynecology; ATTEND Obstetrics & Gynecology
DX: O03.9 Complete or unspecified spontaneous abortion without complication (principal); Z3A.19 19 weeks gestation of pregnancy; Z86.19 Personal history of other infectious and parasitic diseases
CPT/HCPCS: 76815; 80305; 85025; 85027; 85460; 86850; 86900; 86901; 87491; 87591; 96360; 99284; J2590; J2792; J7040; 36430; 96361; 96365; G0378